=== PATIENT | female | born 1995 | race Caucasian/White ===

== ENCOUNTER 2021-07-05 08:44 | Observation (INO) | payer SELFPAY ==
[2021-07-05] MEDS ORDERED: IV RINGERS,LACTATED 1000ML 1,000 ML IV SCH (09:15)
[2021-07-05] MEDS ORDERED: ACETAMINOPHEN 325 MG TABLET. PO PRN (09:15)
[2021-07-05 09:24] LABS: BASO % 0 % (0-3); EOS # 0.1 x10^3/uL (0.0-0.7); EOS % 1 % (0-3); HEMATOCRIT 27.5 % (36.0-47.0); HEMOGLOBIN 9.4 g/dL (12.0-15.5); LYMPH % 22 % (24-48); MEAN CORPUSCULAR HEMOGLOBIN 27 pg (25-35); MEAN CORPUSCULAR HGB CONC 34 g/dL (31-37); MEAN CORPUSCULAR VOLUME 79 fL (79-100); MONO # 0.5 x10^3/uL (0.0-1.1); MONO % 5 % (0-9); NEUT # 6.6 x10^3/uL (1.8-7.7); NEUT % 72 % (31-73); PLATELET COUNT 290 x10^3/uL (140-400); RED BLOOD COUNT 3.49 x10^6/uL (3.50-5.40); RED CELL DISTRIBUTION WIDTH 12.8 % (11.5-14.5); WHITE BLOOD COUNT 9.2 x10^3/uL (4.0-11.0)
[2021-07-05 09:34] LABS: BILIRUBIN,URINE NEGATIVE (NEG); CLARITY,URINE CLEAR; COLOR,URINE YELLOW; NITRITE,URINE NEGATIVE (NEG); PROTEIN,URINE NEGATIVE (NEG-TRACE)
[2021-07-05 09:41] LABS: BARBITURATES NEG (NEG); BENZODIAZEPINES NEG (NEG); CANNABINOIDS NEG (NEG); COCAINE NEG (NEG); METHADONE NEG (NEG); OPIATES NEG (NEG); PHENCYCLIDINE NEG (NEG)
[2021-07-05 09:47] LABS: AMPHETAMINE/METHAMPHETAMINE POS (NEG)
--- NOTE | 2021-07-05 10:06 | RAD ---
EXAM: OBSTETRIC ULTRASOUND. HISTORY: Twin gestation, dating . COMPARISON: None. FINDINGS: Sonographic evaluation of the uterus, fetus and maternal pelvis was performed. There is a single fetus in vertex presentation. No second gestation is identified. heart rate i s 132 bpm. Estimated gestational age based on measurements is 31 weeks 1 day. Head circumference, bip arietal diameter, abdominal circumference and femur length are commensurate. Estimated weight i s 1627 g, at 46th percentile. The placenta is anterior. There is no evidence of placenta previa. Amniotic fluid volume appears norm al with amniotic fluid index 11.0 cm. The cervix is closed and measures 4.9 cm. There is no hydrocephalus. The heart is four-chamber. The stomach is visualized. No anomalies are lillie ntified. The maternal adnexa are obscured by positioning currently. IMPRESSION: 1. Single fetus in vertex presentation. No second gestation is identified. heart rate 132 bpm. Estimated gestational age based on measurements 31 weeks 1 day. Electronically signed by: Aaron Calles MD (07/05/2021 10:04 AM) [id number]
[2021-07-05 10:26] LABS: BACTERIA,URINE FEW /HPF (0-FEW)
[2021-07-05 10:27] LABS: RBC,URINE OCC /HPF (0-2)
[2021-07-05 11:30] LABS: ALBUMIN 2.6 g/dL (3.4-5.0); ALBUMIN/GLOBULIN RATIO 0.6 (1.0-1.7); CALCIUM 8.7 mg/dL (8.5-10.1); CREATININE 0.8 mg/dL (0.6-1.0); GFR 86.7; POTASSIUM 3.4 mmol/L (3.5-5.1); TOTAL BILIRUBIN 0.9 mg/dL (0.2-1.0); TOTAL PROTEIN 6.7 g/dL (6.4-8.2)
--- NOTE | 2021-07-05 15:42 | PDOC1 ---
[facility] H&P Date of Admission: Date of Admission: Jul 05, 2021 at 08:44 History of Present Illness: EDC: 09/08/21 LMP: unk 25y @ 30.5 by 1st trimester u/s who presented to L&D with intense abd pain. The pt states that the pain began at 8:30 am. It felt like labor pain. The stated that she had been told that she was having twins. She does not recall how long ago that u/s was. The pt states that she began her care at [facility], but transitioned to [facility]. I could not find any records of her in [facility] EMR. The pt otherwise has had uncomplicated . She states that she has seizure do, some kidney issues and Hep C. She reports her last seizure was yesterday resulting in a fall. She did not seek medical care. PMH: Seizure do, asthma, Hep C, kidney issue PSH: left ankle Meds: PNV All: Amoxicillin, PCN OBHx: TSVD x 4, SAB x 1 SH: 1.5 PPD, no EtOH FH: thyroid, HTN Allergies: Coded Allergies: Penicillins (Verified Allergy, Mild, Hives, 07/05/21) Physical Exam: PE: GENERAL: No apparent distress. Alert and oriented. HEENT: Head normocephalic, atraumatic. NECK: Supple LUNGS: Clear to auscultation. HEART: RRR, S1, S2 present, pulses intact ABDOMEN: Soft, positive bowel sounds. EXTREMITIES: No cyanosis or edema. NEUROLOGIC: Normal speech, normal tone PSYCHIATRIC: Normal affect, normal mood. SKIN: No ulceration. FHT: 140s +acels/no decels/mLTV [place]: quiet SVE 1/50/-2 Labs: Laboratory Tests Test 07/05/21 08:53 07/05/21 09:03 White Blood Count 9.2 x10^3/uL (4.0-11.0) Red Blood Count 3.49 x10^6/uL (3.50-5.40) L Hemoglobin 9.4 g/dL (12.0-15.5) L Hematocrit 27.5 % (36.0-47.0) L Mean Corpuscular Volume 79 fL (79-100) Mean Corpuscular Hemoglobin 27 pg (25-35) Mean Corpuscular Hemoglobin Concent 34 g/dL (31-37) Red Cell Distribution Width 12.8 % (11.5-14.5) Platelet Count 290 x10^3/uL (140-400) Neutrophils (%) (Auto) 72 % (31-73) Lymphocytes (%) (Auto) 22 % (24-48) L Monocytes (%) (Auto) 5 % (0-9) Eosinophils (%) (Auto) 1 % (0-3) Basophils (%) (Auto) 0 % (0-3) Neutrophils # (Auto) 6.6 x10^3/uL (1.8-7.7) Lymphocytes # (Auto) 2.0 x10^3/uL (1.0-4.8) Monocytes # (Auto) 0.5 x10^3/uL (0.0-1.1) Eosinophils # (Auto) 0.1 x10^3/uL (0.0-0.7) Basophils # (Auto) 0.0 x10^3/uL (0.0-0.2) Sodium Level 137 mmol/L (136-145) Potassium Level 3.4 mmol/L (3.5-5.1) L Chloride Level 105 mmol/L (98-107) Carbon Dioxide Level 20 mmol/L (21-32) L Anion Gap 12 (6-14) Blood Urea Nitrogen 5 mg/dL (7-20) L Creatinine 0.8 mg/dL (0.6-1.0) Estimated GFR (Cockcroft-Gault) 86.7 BUN/Creatinine Ratio 6 (6-20) Glucose Level 93 mg/dL (70-99) Calcium Level 8.7 mg/dL (8.5-10.1) Total Bilirubin 0.9 mg/dL (0.2-1.0) Aspartate Amino Transferase (AST) 42 U/L (15-37) H Alanine Aminotransferase (ALT) 40 U/L (14-59) Alkaline Phosphatase 137 U/L (46-116) H Total Protein 6.7 g/dL (6.4-8.2) Albumin 2.6 g/dL (3.4-5.0) L Albumin/Globulin Ratio 0.6 (1.0-1.7) L Hepatitis B Surface Antibody Nonreactive Hepatitis C IgG Antibody Reactive (Nonreactive) HIV (1&2) Antibody Screen Nonreactive (Nonreactive) Urine Collection Type Unknown Urine Color Yellow Urine Clarity Clear Urine pH 7.0 (<5.0-8.0) Urine Specific [place] 1.015 (1.000-1.030) Urine Protein Negative mg/dL (NEG-TRACE) Urine Glucose (UA) Negative mg/dL (NEG) Urine Ketones (Stick) 40 mg/dL (NEG) Urine Blood Negative (NEG) Urine Nitrite Negative (NEG) Urine Bilirubin Negative (NEG) Urine Urobilinogen Dipstick 1.0 mg/dL (0.2 mg/dL) Urine Leukocyte Esterase Large (NEG) Urine RBC Occ /HPF (0-2) Urine WBC 5-10 /HPF (0-4) Urine Squamous Epithelial Cells Mod /LPF Urine Bacteria Few /HPF (0-FEW) Urine Mucus Slight /LPF Urine Opiates Screen Neg (NEG) Urine Methadone Screen Neg (NEG) Urine Barbiturates Neg (NEG) Urine Phencyclidine Screen Neg (NEG) Urine Amphetamine/Methamphetamine Pos (NEG) Urine Benzodiazepines Screen Neg (NEG) Urine Cocaine Screen Neg (NEG) Urine Cannabinoids Screen Neg (NEG) Urine Ethyl Alcohol Neg (NEG) SARS-CoV-2 RNA (LEROY) Negative (Negative) SARS-CoV-2 Antigen (Rapid) Negative (NEGATIVE) Laboratory Tests 07/05/21 08:53 Laboratory Tests 07/05/21 08:53 Laboratory Tests 07/05/21 08:53 Assessment & Plan: A/P 25y @ 30.5 by 1st trimester u/s w 1.) Abd not in PTL, u/s reassuming. Resolved over time 2.) Questionable could not find [facility] records, likely has not been to either [facility] or [facility] 3.) Seizure do does not have PCP or neurologist. On no meds. 4.) Hep C dxed prior to . Stressed the importance of establishing with a PCP 5.) Kidney issue Cr nml 6.) Asthma 7.) Anemia Hgb 9.4 8.) UDS pos for amphetamine/Methamph 9.) Covid neg 10.) Fetus cat I FHT, thought that she had twins. [place] on u/s ALIZE LEARY MD Jul 05, 2021 15:42
[2021-07-07 11:13] LABS: HCV ULTRA QUANT PCR 225000 IU/mL (.)
== END 2021-07-05 13:35 | disposition home or self-care (01) ==
LOC: 3 SO LND 08:44
PROVIDERS: ADMIT Obstetrics & Gynecology; ATTEND Obstetrics & Gynecology
DX: O26.893 Other specified pregnancy related conditions, third trimester (principal); R10.2 Pelvic and perineal pain; O16.4 Unspecified maternal hypertension, complicating childbirth; Z20.822 Contact with and (suspected) exposure to COVID-19; O99.353 Diseases of the nervous system complicating pregnancy, third trimester; G40.909 Epilepsy, unspecified, not intractable, without status epilepticus; B19.20 Unspecified viral hepatitis C without hepatic coma; O99.513 Diseases of the respiratory system complicating pregnancy, third trimester; J45.909 Unspecified asthma, uncomplicated; Z79.899 Other long term (current) drug therapy; O24.419 Gestational diabetes mellitus in pregnancy, unspecified control; Z3A.30 30 weeks gestation of pregnancy
CPT/HCPCS: 36415; 59025; 76805; 80053; 80307; 81001; 85025; 86703; 86706; 86803; 86850; 86900; 86901; 87086; 87426; 87491; 87522; 87591; G0378; G0379; U0003; U0005